=== PATIENT | female | born 1930 | race Caucasian/White ===

== ENCOUNTER 2017-11-29 04:18 | Inpatient (IN) ==
--- NOTE | 2017-11-29 08:00 | Internal Med History&Physical ---
Date of Encounter: 11/29/17 Time of Encounter: 07:15 Internal Medicine - H&P: HPI Chief complaint: chest pain Admitted From: Home Plans for Post Hospital Care: Transfer Alf Facility History of present illness: Ms. Zaidi is a 86 year old female with history of paroxysmal atrial fibrillation not on anticoagulation, hypothyroidism and noncompliance with medications and medical care presented to [facility] from [place] with chief complaint of chest pain. As per patient she has had on and off episodes of left-sided sharp chest pain that is nonradiating occurs at rest, lasts about 30 minutes to 1 hour and self relieving for the past 2 weeks. She cannot recall any alleviating or aggravating factors. She does report that she has been admitted to hospital multiple times in the past few weeks however she is unsure as to why. When asked about her medications she is unsure what medications she is prescribed and reports that currently she is not taking any medications. She is unable to provide further history. As per chart review she had visited [place] emergency department at around 1 AM on 11/29 with complaint of chest pain and palpitations. It appears that the patient had signed out AGAINST MEDICAL ADVICE after she was admitted for similar symptoms a few days prior to presenting to [facility] on 11/29. Patient currently lives alone, reports that she is independent with ambulation however she forgets to take her medications. She cannot recall the last time she saw her primary doctor. Currently she denies any fever, chills, chest pain, palpitations, shortness of breath, cough, nausea, vomiting, diarrhea, syncope, loss of consciousness, recent falls. Past Med Surg Social Fam HX - Past Medical History Medical history: atrial fibrillation, CVA, dementia, GERD, hyperlipidemia, hypertension, thyroid disease Additional medical history: Alzheimers Psychiatric history: no psych history - Past Surgical History Surgical History: non-contributory Additional surgical history: PARATHYROIDECTOMY - Social History Smoking Status: Never smoker Smokeless Tobacco Status: No Alcohol use: none, rarely Drug use: none Internal Medicine - H&P: Meds Levothyroxine [Synthroid] 88 mcg PO 0630 03/19/17 [History] Donepezil HCl [Aricept] 5 mg PO DAILY 07/21/17 [History] Aspirin [Lo-Dose Aspirin EC] 81 mg PO QAM 11/25/17 [History] 3 Allergy/AdvReac Type Severity Reaction Status Date / Time No Known Allergies Allergy Verified 11/25/17 17:54 All Systems PM: review of systems was performed and is negative for pertinent findings except as documented above in the HPI. - Constitutional Vitals: Temp Pulse Resp BP Pulse Ox 98.2 F 73 16 151/69 99 11/29/17 06:25 11/29/17 06:25 11/29/17 06:25 11/29/17 06:25 11/29/17 06:43 Exam: General: Patient is alert, oriented, no acute distress, thin Head: atraumatic, normocephalic, Eye: normal appearance, PERRL, no scleral icterus, no conjunctival injection ENT: mucous membranes moist, normal external ear exam Neck: normal inspection, trachea midline, full ROM, no carotid bruits Chest: normal inspection, symmetric chest rise Respiratory: Good respiratory effort. Bilateral breath sounds are clear without wheezing, crackles, or rhonchi. Cardiovascular: Regular rate and rhythm. s1 and s2 , systolic ejection murmur on the right second intercostal space parasternally. Abdomen: Bowel sounds present normoactive x-4 quadrants. Abdomen is soft, nondistended. no Epigastric tenderness. No guarding or rebound. No organomegaly noted, thin musculoskeletal: Spontaneously moving all extremities. no edema, no calf tenderness Skin: warm, dry, intact. Neuro: Alert and oriented x3 Sensation light touch intact. Cranial nerves 2- 12 is intact. Not aphasic Psych: Patient's affect is normal Internal Med - H&P Results - EKG Data -: EKG Interpreted by Myself (Sinus rhythm, ?LAE, Qwaves in III, V3 and V4 (? old sharri-inferior infarct) - EKG Data Prior EKG available for review: yes When compared to previous EKG: there is no significant change - Assessment and plan (1) Chest pain Current Visit: No Status: Acute Assessment and plan: Left-sided chest pain most likely secondary to A. fib with RVR but cannot rule out underlying CAD will rule out ACS. Telemetry monitoring troponin was negative at [facility] Follow serial troponin and EKG every 6 hours TTE Loaded with aspirin 325 and continue with aspirin 81 daily Cardiology consultation Nitroglycerin when necessary for chest pain Currently on Cardizem drip for A. fib with RVR taper off and start coreg 3.125 BID adn titrate as per BP and HR If she develops active chest pain, EKG changes, or the troponin trends up consider loading with Plavix and starting heparin drip Lipitor 40 mg daily at bedtime Lipid panel, TSH, A1c in the a.m. Qualifiers: Chest pain type: unspecified Qualified Code(s): R07.9 - Chest pain, unspecified (2) Atrial fibrillation with RVR Current Visit: No Status: Acute Assessment and plan: Was found to be in A. fib with RVR at [facility] and was started on Cardizem drip and transferred to [facility] Chads vasc score is 4 - i dont think she is a good candidate for anticoagulation as she is not compliant with medications - I tried to discuss with patient the risks and benefits of AC she would like to think about it. taper off Cardizem drip Start on coreg 3.125 mg BID and titrate as per BP and HR Continue aspirin 81 mg daily Cardiology consult TSH WNL will send magnesium TTE (3) Systolic ejection murmur Current Visit: Yes Status: Acute Assessment and plan: Systolic ejection murmur in the right second intercostal space parasternally TTE ordered (4) Microcytic anemia Current Visit: No Status: Acute Assessment and plan: Baseline H&H around 10 We will send iron panel FOBT Type and screen Monitor H&H and transfuse less than 8 (5) Hypertension Current Visit: No Status: Chronic Assessment and plan: Started on coreg 3.125 BID - titrate as per HR and BP We will follow vital signs Qualifiers: Hypertension type: essential hypertension Qualified Code(s): I10 - Essential (primary) hypertension (6) Hypothyroidism Current Visit: No Status: Chronic Assessment and plan: continue home medications TSH WNL at [place] Qualifiers: Hypothyroidism type: acquired Qualified Code(s): E03.9 - Hypothyroidism, unspecified (7) Protein calorie malnutrition Current Visit: Yes Status: Acute Assessment and plan: nutrition consult Qualifiers: Protein-calorie malnutrition severity: unspecified severity Qualified Code( s): E46 - Unspecified protein-calorie malnutrition (8) DVT prophylaxis Current Visit: Yes Status: Acute Assessment and plan: heparin sc - Time Spent With Patient Total time spent is greater than 50% in coordination of care (as documented) at patient's floor/unit and/or counseling patient:
[2017-11-29] MEDS ORDERED: Naloxone 0.4 MG/ML INJ IVP PRN (08:13)
[2017-11-29] MEDS ORDERED: Aspirin 81 MG TAB.CHEW PO STA (08:15)
[2017-11-29 08:49] LABS: Prothrombin Time 11.4 Seconds (9.4-12.1)
[2017-11-29 08:52] LABS: Activated Partial Thrombo Time 34.3 Seconds (26.0-36.0)
[2017-11-29 09:04] LABS: Chol/HDL Ratio 3.2 (0-4.9); Magnesium 1.9 mg/dL (1.6-2.6); Phosphorous 3.5 mg/dL (2.7-4.5)
[2017-11-29] MEDS: *HR* Heparin 5,000 UNIT/ML VIAL SQ SCH ×2 (14:15→21:28)
[2017-11-30] MEDS: *HR* Heparin 5,000 UNIT/ML VIAL SQ SCH ×3 (05:28→22:06)
[2017-11-30 06:23] LABS: Basophils % 0.7 %; Eosinophils # 0.2 K/mcL (0.0-0.6); Eosinophils % 5.3 %; Hemoglobin 10.9 g/dL (11.5-15.4); Immature Granulocytes % 0.2 % (0-4); Lymphocytes # 1.2 K/mcL (0.6-4.6); Lymphocytes % 25.8 %; Mean Corpuscular HGB Conc 30.3 g/dL (31.6-35.5); Mean Corpuscular Hemoglobin 24.1 pg (28.0-33.3); Mean Corpuscular Volume 79.5 fL (83.0-100.0); Mean Platelet Volume 10.2 fL (9.4-12.4); Monocytes # 0.4 K/mcL (0.0-1.3); Monocytes % 9.1 %; Neutrophils # 2.6 K/mcL (1.6-8.9); Platelet Count 227 K/mcL (140-400); Red Blood Count 4.53 M/mcL (3.82-4.97); Red Cell Distribution Width 15.2 % (11.5-14.5); Segmented Neutrophils % 58.9 %
[2017-11-30 06:40] LABS: BUN/Creatinine Ratio 20 (6-26); Blood Urea Nitrogen 17 mg/dL (8-23); Calcium 9.4 mg/dL (8.6-10.3); Carbon Dioxide 26 mEq/L (23-29); Chloride 107 mEq/L (98-107); Glucose 109 mg/dL (70-105); Osmolality,Calculated 288 (280-300); Potassium 4.3 mEq/L (3.5-5.1); Sodium 138 mEq/L (136-145); eGFR For Non-African Americans > 60 (> 60)
[2017-11-30 06:41] LABS: % Iron Saturation 6 % (15-50); Iron 32 mcg/dL (50-170); Transferrin 356 mg/dL (203-362)
[2017-11-30] MEDS: Aspirin Enteric Coated 81 MG Tablet PO SCH (08:12)
--- NOTE | 2017-11-30 11:09 | Cardiology Consult Note ---
Date of Encounter: 11/30/17 Time of Encounter: 10:00 Assessment and Plan (1) Elevated troponin Current Visit: Yes Status: Acute Mildly elevated troponin, 0.06, 0.05, 0.03, in the setting of atrial fibrillation with RVR (HR 140's-150's) and severely elevated BP (SBP 200s); suspect demand ischemia. No acute ischemic ECG changes present. No recurrent chest pain since HR/BP controlled. Suspect neck/chest discomfort secondary to RVR and severely elevated BP. Nuclear stress test (2014 at [facility]) negative for ischemia or infarct. BP remains severely elevated this AM, will increase coreg to 6.25 mg BID. Continue asa. TTE shows preserved LVEF with normal wall motion. No further testing recommended as inpatient at this time, continue medical therapy. Follow-up with [facility] as scheduled in the outpatient setting. (2) PAF (paroxysmal atrial fibrillation) Current Visit: Yes Status: Acute Hx of PAF. Upon review, had been on Coumadin in the past, reportedly d/t CVA however d/c'ed a few years ago due to recurrent falls (with injury) and dementia. Converted to NSR, no recurrent PAF noted. Continue BB and ASA for AC. No further testing recommended at this time. Has outpatient follow-up with Cardiology scheduled. (3) Systolic ejection murmur Current Visit: Yes Status: Acute TTE completed and demonstrated preserved LVEF with moderately thickened AV with no significant stenosis; no other significant valvular dysfunction noted. No further testing recommended. Continue to monitor. Recommend close outpatient follow-up with PCP. Discussion w patient/family: The assessment and plan as outlined above was discussed with the patient and/or family members who expressed understanding and agreement. All questions were answered. Thank you for involving us in the care of your patient. Please call with any questions. The patient will be discussed and reviewed with Dr. Orona; changes to be made accordingly. History of Present Illness Consult date: 11/29/17 Requesting physician: Chaparrita Costello Consult reason: CP/AFIB/ Chief complaint: Chest pain History of present illness: Ms. Zaidi is a 86 year old female with PMHx significant for dementia, DMII, HTN , PAF, and prior CVA who presented to the ED with complaints of chest and neck discomfort. Please note, patient is a poor historian given hx of dementia; she is alert and oriented x3 however is noted to be forgetful. She reports episode of chest and neck discomfort that started yesterday; reportedly her friend took her to the ED for further evaluation. Upon arrival to [facility] ED she was noted to be in atrial fibrillation with RVR (rate 148) with significantly elevated blood pressure, SBP ~200. She was then sent to [facility] for further evaluation. Upon exam, patient is chest pain free. She has since converted to NSR. Upon review, patient had been on Coumadin in the past (indication CVA) however was stopped ~2 years ago due to frequent falls with injury (lacerations to head) and worsening dementia. Past Med Surg Social Fam HX - Past Medical History Attestation: Yes The following information was validated with the patient. Source: patient Medical history: atrial fibrillation, CVA, dementia, GERD, hyperlipidemia, hypertension, thyroid disease Additional medical history: Alzheimers Psychiatric history: no psych history - Past Surgical History Surgical History: non-contributory Additional surgical history: PARATHYROIDECTOMY - Social History Smoking Status: Never smoker Smokeless Tobacco Status: No Alcohol use: none, rarely Drug use: none - Family History Mother Living Status: Cause of : unknown Hx Family Cardiac Disorders: Yes (heart disease) Father Living Status: Cause of : unknown Hx Family Cardiac Disorders: Yes (heart disease) Medications and Allergies Levothyroxine [Synthroid] 88 mcg PO 0630 03/19/17 [History] Donepezil HCl [Aricept] 5 mg PO DAILY 07/21/17 [History] Aspirin [Lo-Dose Aspirin EC] 81 mg PO QAM 11/25/17 [History] 3 Allergy/AdvReac Type Severity Reaction Status Date / Time No Known Allergies Allergy Verified 11/25/17 17:54 All Systems Review: The remainder of the systems were reviewed and are negative - Cardiovascular Cardiovascular: as per HPI Physical Examination Vital Signs, Last 4 Hours Temp Pulse Resp BP Pulse Ox 11/30/17 07:29 98.3 F 74 16 185/78 97 General: Conversant, No Apparent Distress (f), Other (forgetful) Cardiac: Reg Rate and Rhythm, Normal S1 and S2, Other (2/6 systolic murmur) Neuro: Alert and responsive Abdomen: Soft Skin: No rashes noted on visualized skin Musculoskeletal: No Chest Wall Tenderness Extremities: No Edema, Normal Pulses Results 11/30/17 05:51 11/30/17 05:51 Lab Results 11/29/17 11/29/17 11/30/17 14:07 20:13 05:51 WBC 4.5 Hgb 10.9 L Hct 36.0 Plt Count 227 Sodium Potassium Chloride Carbon Dioxide BUN Creatinine Glucose Calcium Troponin I 0.05 H* 0.03 11/30/17 05:51 WBC Hgb Hct Plt Count Sodium 138 Potassium 4.3 Chloride 107 Carbon Dioxide 26 BUN 17 Creatinine 0.84 Glucose 109 H Calcium 9.4 Troponin I Active Medications Aspirin (Aspirin Ec) 81 mg PO QAM [facility] Stop: 06/01/18 09:01 Last Admin: 11/30/17 08:12 Dose: 81 mg Carvedilol (Coreg) 3.125 mg PO BIDWM [facility] PRN Reason: Protocol Stop: 05/31/18 08:46 Last Admin: 11/30/17 08:12 Dose: 3.125 mg Donepezil HCl (Aricept) 5 mg PO DAILY [facility] Stop: 05/31/18 09:01 Last Admin: 11/30/17 08:12 Dose: 5 mg Heparin Sodium (Porcine) (Heparin) 5,000 unit SQ Q8HCO [facility] Stop: 05/31/18 14:01 Last Admin: 11/30/17 05:28 Dose: 5,000 unit Levothyroxine Sodium (Synthroid) 88 mcg PO 0630 [facility] Stop: 06/01/18 06:31 Last Admin: 11/30/17 05:28 Dose: 88 mcg Naloxone HCl (Narcan) 0.4 mg IVP Q2MIN PRN PRN Reason: SEE COMMENTS Stop: 05/31/18 08:14 Omeprazole (Prilosec) 20 mg PO DAILY@0630 [facility] PRN Reason: Protocol Stop: 06/01/18 06:31 Last Admin: 11/30/17 05:28 Dose: 20 mg - Imaging and Cardiology Echo: report reviewed Other Results: 12 hour tele: avg HR=72 SR. No events noted. - EKG Interpretation EKG results cardiology: personally reviewed Consult Discharge Plan - Plan Referrals: Carlos Olmstead MD [Primary Care Provider] -
--- NOTE | 2017-11-30 20:21 | Internal Med Progress Note ---
Hospitalist Progress Note - Encounter Date of Encounter: 11/30/17 Time of Encounter: 19:00 - Subjective Interval History: SUBJECTIVE: The patient feels good. She has not had any chest pain or difficulty breathing since admitting her to our hospital. Denies dizziness/lightheadedness. Denies abdominal pain, nausea and vomiting. She has normal urination. OBJECTIVE: Skin: Free of rash and discoloration. ENMT: Oral/pharyngeal mucosa is normal in appearance. Eyes: Sclera is white. There is no discharge from eyes. Respiratory: Normal breath sounds; no crackles or wheezes. CV: Heart is regular; no gallop or murmur. GI: Abdomen is soft and not tender. There is no palpable mass or visceromegaly. Neuro: There is no focal deficits. ADDITIONAL DATA: Her telemetry shows normal sinus rhythm. Echocardiogram shows ejection fraction of 65%. Otherwise, he does not show any significant abnormalities. Hemoglobin is 10.9 with MCV of 79.5. Her iron level is 32; with a 6% of saturation. Aspirin is 356. BMP is normal. ASSESSMENT AND PLAN: The patient admitted with chest pain. She had an episode of atrial fibrillation with rapid ventricular rate before she converted to normal sinus rhythm. Cardiology is consulted. They want to do stress test tomorrow. Uncontrolled hypertension. We have to keep her carvedilol on hold due to pending stress test. We will use when necessary IV hydralazine. Microcytic anemia. We will start her on iron pills. She needs outpatient GI workup. Hypothyroidism. Clinically under control. We will continue Synthroid. - Exam Vitals: Temp Pulse Resp BP Pulse Ox 98.7 F 71 14 123/65 93 11/30/17 16:33 11/30/17 16:33 11/30/17 16:33 11/30/17 18:40 11/30/17 16:33 Exam: xx - Assessment and Plan (1) Chest pain Current Visit: Yes Status: Acute (2) PAF (paroxysmal atrial fibrillation) Current Visit: Yes Status: Acute (3) Atrial fibrillation with RVR Current Visit: Yes Status: Resolved (4) Hypertension Current Visit: Yes Status: Chronic (5) Microcytic anemia Current Visit: Yes Status: Chronic (6) Hypothyroidism Current Visit: Yes Status: Chronic (7) Protein calorie malnutrition Current Visit: Yes Status: Acute - Time Spent with Patient Total time spent is greater than 50% in coordination of care (as documented) at patient's floor/unit and/or counseling patient: 25 - 35 minutes Plan of Care Discussed with: patient Internal Medicine: Result - Labs CBC & Chem 7: 11/30/17 05:51 11/30/17 05:51 Labs: Short CBC 11/30/17 Range/Units 05:51 WBC 4.5 (4.3-11.1) K/mcL Hgb 10.9 L (11.5-15.4) g/dL Hct 36.0 (35.3-44.9) % Plt Count 227 (140-400) K/mcL Neutrophils # 2.6 (1.6-8.9) K/mcL BMP 11/30/17 05:51 Sodium 138 Potassium 4.3 Chloride 107 Carbon Dioxide 26 BUN 17 Creatinine 0.84 Glucose 109 H Calcium 9.4 Cardiac Enzymes 11/29/17 Range/Units 20:13 Troponin I 0.03 (< 0.04) ng/mL - ABG Interpretation ABG results: PT/INR, D-dimer PT 11.4 Seconds (9.4-12.1) 11/29/17 08:30 - Impressions Impressions Echocardiogram 11/29/17 08:17 Impressions: LVEF 65%. Normal LV chamber size and function. Mild concentric left ventricular hypertrophy. Mild left ventricular diastolic dysfunction. Normal right ventricular structure and function. Moderately thickened aortic valve leaflets without significant stenosis. Mean gradient 8 mmHg. Consult Discharge Plan - Plan Referrals: Carlos Olmstead MD [Primary Care Provider] - (1) Chest pain Qualifiers: Chest pain type: unspecified Qualified Code(s): R07.9 - Chest pain, unspecified (4) Hypertension Qualifiers: Hypertension type: essential hypertension Qualified Code(s): I10 - Essential (primary) hypertension (6) Hypothyroidism Qualifiers: Hypothyroidism type: acquired Qualified Code(s): E03.9 - Hypothyroidism, unspecified (7) Protein calorie malnutrition Qualifiers: Protein-calorie malnutrition severity: unspecified severity Qualified Code(s) : E46 - Unspecified protein-calorie malnutrition
[2017-12-01] MEDS ORDERED: Regadenoson 0.4 MG/5 ML SYRINGE IVP ONE (05:27)
[2017-12-01] MEDS: *HR* Heparin 5,000 UNIT/ML VIAL SQ SCH (06:29)
[2017-12-01] MEDS: Aspirin Enteric Coated 81 MG Tablet PO SCH (09:25)
--- NOTE | 2017-12-01 10:15 | Cardiology Progress Note ---
Date of Encounter: 12/01/17 Time of Encounter: 11:00 Assessment and Plan (1) Elevated troponin Current Visit: Yes Status: Acute Mildly elevated troponin, 0.06, 0.05, 0.03, in the setting of atrial fibrillation with RVR (HR 140's-150's) and severely elevated BP (SBP 200s); suspect demand ischemia. No acute ischemic ECG changes present. No recurrent chest pain since HR/BP controlled. Suspect neck/chest discomfort secondary to RVR and severely elevated BP. Nuclear stress test (2014 at [facility]) negative for ischemia or infarct. BP remains severely elevated this AM, coreg increased yesterday; will resume ACEi today at decreased dose--recommend further dose titration by primary service. TTE shows preserved LVEF with normal wall motion. Nonexercise nuclear stress completed today and is negative for ischemia or infarct. Follow-up with [facility] as scheduled in the outpatient setting. (2) PAF (paroxysmal atrial fibrillation) Current Visit: Yes Status: Acute Hx of PAF. Upon review, had been on Coumadin in the past, reportedly d/t CVA however d/c'ed a few years ago due to recurrent falls (with injury) and dementia. Converted to NSR, no recurrent PAF noted. Continue BB and ASA for AC. No further testing recommended at this time. Has outpatient follow-up with Cardiology scheduled. (3) Systolic ejection murmur Current Visit: Yes Status: Acute TTE completed and demonstrated preserved LVEF with moderately thickened AV with no significant stenosis; no other significant valvular dysfunction noted. No further testing recommended. Continue to monitor. Recommend close outpatient follow-up with PCP. Discussion w patient/family: The assessment and plan as outlined above was discussed with the patient and/or family members who expressed understanding and agreement. All questions were answered. Thank you for involving us in the care of your patient. Please call with any questions. The patient will be discussed and reviewed with Dr. Wright; changes to be made accordingly. Subjective Principal diagnosis: Afib, chest pain Interval history: Seen and examined earlier this morning in the stress lab. No chest pain overnight. Noted to be forgetful. No PAF noted. Objective Vital Signs, Last 4 Hours Temp Pulse Resp BP Pulse Ox 12/01/17 08:51 98.2 F 82 17 162/66 95 General: Conversant, No Apparent Distress, Other (thin, frail) HEENT: Atraumatic, Normocephaly, Mucus Membranes Moist Neck: No JVD, Normal carotid pulses Cardiac: Reg Rate and Rhythm, Normal S1 and S2, No Murmur Lungs: Normal Breath Sounds, No Wheeze, Rales, Rhonchi Neuro: Alert and responsive, No focal deficits noted Abdomen: Soft, Non-Tender Skin: No rashes noted on visualized skin Musculoskeletal: No Chest Wall Tenderness Extremities: No Clubbing, No Cyanosis, No Edema, Normal Pulses Results 11/30/17 05:51 11/30/17 05:51 Active Medications Aspirin (Aspirin Ec) 81 mg PO QAM [facility] Stop: 06/01/18 09:01 Last Admin: 12/01/17 09:25 Dose: 81 mg Carvedilol (Coreg) 6.25 mg PO BIDWM [facility] PRN Reason: Protocol Stop: 06/01/18 17:01 Last Admin: 12/01/17 09:25 Dose: 6.25 mg Donepezil HCl (Aricept) 5 mg PO DAILY [facility] Stop: 05/31/18 09:01 Last Admin: 12/01/17 09:25 Dose: 5 mg Heparin Sodium (Porcine) (Heparin) 5,000 unit SQ Q8HCO [facility] Stop: 05/31/18 14:01 Last Admin: 12/01/17 06:29 Dose: 5,000 unit Hydralazine HCl (Hydralazine) 10 mg IVP Q1H PRN PRN Reason: Blood Pressure - High Stop: 06/01/18 16:53 Last Admin: 11/30/17 17:29 Dose: 10 mg Levothyroxine Sodium (Synthroid) 88 mcg PO 0630 [facility] Stop: 06/01/18 06:31 Last Admin: 12/01/17 06:30 Dose: 88 mcg Naloxone HCl (Narcan) 0.4 mg IVP Q2MIN PRN PRN Reason: SEE COMMENTS Stop: 05/31/18 08:14 Omeprazole (Prilosec) 20 mg PO DAILY@0630 [facility] PRN Reason: Protocol Stop: 06/01/18 06:31 Last Admin: 12/01/17 06:30 Dose: 20 mg - Imaging and Cardiology Stress Test: report reviewed Echo: report reviewed Other Results: 12 hour tele: avg HR=79 SR. No PAF noted. - EKG Interpretation EKG results cardiology: personally reviewed Consult Discharge Plan - Plan Referrals: Carlos Olmstead MD [Primary Care Provider] -
[2017-12-01 11:01] VITALS: BP 162/62
--- NOTE | 2017-12-01 13:09 | Discharge Summary ---
Orders not resulted at time of discharge: Pending orders 11/29/17 08:26 Occult Blood,Stool [BF] Stat 11/29/17 14:13 ECG 12 lead ECG [ECG] Q6H 11/29/17 20:13 ECG 12 lead ECG [ECG] Q6H 11/30/17 12:43 NM bautista perf SPECT multi [NM] Routine Date of Encounter: 12/01/17 Time of Encounter: 13:05 - Discharge Diagnosis (1) Chest pain Priority: Primary Status: Acute Qualifiers: Chest pain type: unspecified Qualified Code(s): R07.9 - Chest pain, unspecified (2) PAF (paroxysmal atrial fibrillation) Priority: Primary Status: Acute (3) Atrial fibrillation with RVR Priority: Primary Status: Resolved (4) Hypertension Priority: Secondary Status: Chronic Qualifiers: Hypertension type: essential hypertension Qualified Code(s): I10 - Essential (primary) hypertension (5) Microcytic anemia Priority: Secondary Status: Chronic (6) Hypothyroidism Priority: Secondary Status: Chronic Qualifiers: Hypothyroidism type: acquired Qualified Code(s): E03.9 - Hypothyroidism, unspecified (7) Protein calorie malnutrition Priority: Secondary Status: Acute Qualifiers: Protein-calorie malnutrition severity: unspecified severity Qualified Code( s): E46 - Unspecified protein-calorie malnutrition Hospital course: HOSPITAL COURSE: The patient is an 86-year-old woman. She had experienced multiple episodes of chest pain in the last 2 weeks preceding this admission. She also mentioned about fast heart beating happening shortly before this admission. She does have history of paroxysmal atrial fibrillation. Was not treated with Coumadin due to high risk (falls). Her EKG at admission showed normal sinus rhythm. Her troponins were 0.06, 0.05 and 0.03. We presented her to cardiology. They ordered a stress test. It showed normal findings. It was followed by stress test. He did not show any areas of ischemia. We feel that her slightly elevated troponin represents some demand ischemia. CONDITION AT DISCHARGE: The patient feels good. Denies chest pain and difficulty breathing. She is able to ambulate on her own without difficulties. Skin: Free of rash and discoloration. Respiratory: Normal breath sounds with no crackles and wheezes bilaterally. CV: Heart is regular with no gallop or murmur. GI: Abdomen is flat and soft with no palpable mass or visceromegaly. Neuro exam: There is no focal deficits. Normal speech, swallowing and gait. SEE DISCHARGE ORDERS/MEDICATIONS.. Discharge discussed with: patient, family - Time Spent with Patient Total time spent providing and/or coordinating discharge services: Greater than 30 minutes (40 minutes..) - Discharge Medications Prescriptions: Carvedilol [Coreg] 6.25 mg PO BIDWM #60 tablet Lisinopril [Zestril] 5 mg PO DAILY #30 tablet Home Medications: Levothyroxine [Synthroid] 88 mcg PO 0630 03/19/17 [History] Donepezil HCl [Aricept] 10 mg PO DAILY 07/21/17 [History] Aspirin [Lo-Dose Aspirin EC] 81 mg PO QAM 11/25/17 [History] Carvedilol [Coreg] 6.25 mg PO BIDWM #60 tablet 12/01/17 [Rx] Cyanocobalamin (Vitamin B-12) [Vitamin B12] 1,000 mcg PO DAILY 12/01/17 [History ] Levocetirizine Dihydrochloride [Allergy Relief] 5 mg PO DAILY 12/01/17 [History] Lisinopril [Zestril] 5 mg PO DAILY #30 tablet 12/01/17 [Rx] Sertraline [Zoloft] 50 mg PO DAILY 12/01/17 [History] Allergies/Adverse Reactions: 3 Allergy/AdvReac Type Severity Reaction Status Date / Time No Known Allergies Allergy Verified 11/25/17 17:54 Date of admission: 12/01/17 10:51 Primary care physician: Carlos Olmstead MD Consults: 11/29/17 06:41 Consult to Nutrition [CONS] Routine Comment: Consulting Provider: NUTRITION Reason for Dietary Consult: MST Score Consult to Applications Programmer Analyst [CONS] Routine Reason for SW Consult: possible needs at discharge 11/29/17 08:15 Consult to Case Management [CONS] Routine Comment: Consult to Nutrition [CONS] Routine Comment: Consulting Provider: NUTRITION Reason for Dietary Consult: PO Supplementation OT [Consult to Occupational Therapy] [CONS] Routine Comment: Evaluate, develop and implement POC Reason for Consult: disposition Does patient have active BEDREST order?: No Is patient medically & hemodynamically stable?: Yes Patient assessed for mobility or mobilized this visit?: Yes 11/29/17 08:16 Consult to Cardiology [CONS] Routine Comment: Consulting Provider: Cardiology [place] Reason for Consult: afib, CP, ? murmur Call Completed: No Discharging clinician: Og Andrew Anticipated date of discharge: 12/01/17 - Constitutional Vitals: Temp Pulse Resp BP Pulse Ox 98.4 F 70 18 162/62 98 12/01/17 10:55 12/01/17 10:55 12/01/17 10:55 12/01/17 10:55 12/01/17 10:55 General appearance: Present: cooperative, A&O X 3, pleasant, answers questions appropriately Exam: xx - Patient Status Disposition: Home, Self-Care Condition: Good Functional capacity at discharge: independent ambulation Overall status at discharge: patient is back to baseline - Discharge Instructions Instructions: Atrial Fibrillation (DC), Chronic Hypertension (DC), Anemia (GEN) Follow Up With: Carlos Olmstead MD [Primary Care Provider] - 12/05/17 1:00 pm - Diet and Activity Activity: resume usual activities as tolerated Diet: low fat, low cholesterol - VTE Reasons for not Prescribing Prophylaxis: Treatment not Indicated - Low risk for VTE Deep Vein Thrombosis/Pulmonary Embolism Present on Admission: No
--- NOTE | 2017-12-01 13:14 | Electrocardiograph Report ---
[address] [place], [place] [address] Test Date: 2017-11-29 Pat Name: Dinah Zaidi Department: [id number] Room: 2A Gender: F Aurist: Melissa : [id number] Requested By: [id number] Order Number: [id number] Reading MD: Ángela Mace Measurements Intervals [place] Rate: 77 P: 78 CT: 178 QRS: -19 QRSD: 94 T: 49 QT: 402 QTc: 433 Interpretive Statements SINUS RHYTHM INFERIOR MYOCARDIAL INFARCTION, OF INDETERMINATE AGE Electronically Signed On 12-01-2017 13:13:15 EDT by Ángela Mace
== END 2017-12-01 14:47 | disposition home or self-care (01) | DRG 309 ==
LOC: 2ANU → SUATTDRO 05:40
PROVIDERS: ADMIT Internal Medicine; ATTEND Internal Medicine

== ENCOUNTER 2020-03-20 21:52 | Observation (INO) ==
[2020-03-21] MEDS ORDERED: Naloxone 0.4 MG/ML INJ IVP PRN (00:48)
[2020-03-21] MEDS ORDERED: Ondansetron 4 MG/2 ML VIAL IVP PRN (00:48)
[2020-03-21] MEDS ORDERED: 0.9 % Sodium Chloride 1,000 ML IVC SCH (01:00)
[2020-03-21 05:36] LABS: INR 1.1; Prothrombin Time 12.7 Seconds (9.4-12.1)
[2020-03-21 05:37] LABS: Hematocrit 30.8 % (35.3-44.9); Hemoglobin 9.3 g/dL (11.5-15.4); Mean Corpuscular HGB Conc 30.2 g/dL (31.6-35.5); Mean Corpuscular Hemoglobin 29.3 pg (28.0-33.3); Mean Corpuscular Volume 97.2 fL (83.0-100.0); Mean Platelet Volume 10.9 fL (9.4-12.4); Platelet Count 124 K/mcL (140-400); Red Blood Count 3.17 M/mcL (3.82-4.97); Red Cell Distribution Width 12.9 % (11.5-14.5); White Blood Count 6.1 K/mcL (4.3-11.1)
[2020-03-21 05:39] LABS: Activated Partial Thrombo Time 31.2 Seconds (26.0-36.0)
[2020-03-21] MEDS ORDERED: Perflutren Lipid Microsphere 1.3 ML in 0.9 % Sodium Chloride 8.7 ML IVP PRN (05:45)
[2020-03-21 05:56] LABS: Potassium 4.4 mEq/L (3.5-5.1)
[2020-03-21 11:08] LABS: Bilirubin,Urine Negative (Negative); Blood,Urine Negative (Negative); Clarity,Urine Clear (Clear); Color,Urine Yellow (Yellow); Glucose,Urine (UA) Normal (Normal); Ketones,Urine Negative (Negative); Leukocyte Esterase,Urine Negative (Negative); Nitrite,Urine Negative (Negative); PH,Urine 5.5 pH Units (5.0-8.0); Protein,Urine Trace mg/dL (Neg-Trace); Specific Gravity,Urine 1.026 (1.010-1.025); Urobilinogen,Urine Normal (Normal)
[2020-03-21] MEDS: 0.9 % Sodium Chloride 1,000 ML IVC SCH (15:18)
[2020-03-21] MEDS ORDERED: Nitroglycerin 0.4 MG TAB.SUBL SL PRN (16:33)
[2020-03-21] MEDS: Metoprolol 100 MG TABLET PO SCH (19:57)
[2020-03-21] MEDS: *HR* LORazepam 0.5 MG TABLET PO SCH (19:57)
[2020-03-21] MEDS ORDERED: Mirtazapine 15 MG TABLET PO SCH (21:00)
[2020-03-22 01:04] LABS: Hematocrit 29.9 % (35.3-44.9); Hemoglobin 9.2 g/dL (11.5-15.4); Mean Corpuscular HGB Conc 30.8 g/dL (31.6-35.5); Mean Corpuscular Hemoglobin 30.2 pg (28.0-33.3); Mean Platelet Volume 11.3 fL (9.4-12.4); Platelet Count 108 K/mcL (140-400); Red Blood Count 3.05 M/mcL (3.82-4.97); Red Cell Distribution Width 13.1 % (11.5-14.5); White Blood Count 4.5 K/mcL (4.3-11.1)
[2020-03-22 01:23] LABS: BUN/Creatinine Ratio 25 (6-26); Blood Urea Nitrogen 25 mg/dL (8-23); Calcium 8.9 mg/dL (8.6-10.3); Carbon Dioxide 23 mEq/L (23-29); Chloride 114 mEq/L (98-107); Glucose 84 mg/dL (70-105); Magnesium 1.5 mg/dL (1.6-2.6); Osmolality,Calculated 300 (280-300); Potassium 4.4 mEq/L (3.5-5.1); Sodium 143 mEq/L (136-145); eGFR For African Americans > 60 (> 60); eGFR For Non-African Americans 52 (> 60)
[2020-03-22] MEDS: 0.9 % Sodium Chloride 1,000 ML IVC SCH (05:26)
[2020-03-22] MEDS: *HR* LORazepam 0.5 MG TABLET PO SCH (08:22)
[2020-03-22] MEDS: Metoprolol 100 MG TABLET PO SCH (08:22)
[2020-03-22] MEDS ORDERED: Aspirin Enteric Coated 81 MG Tablet PO SCH (09:00)
[2020-03-22] MEDS ORDERED: amLODIPine 5 MG TABLET PO SCH (09:00)
[2020-03-22] MEDS ORDERED: lisinopriL 20 MG TABLET PO SCH (09:00)
[2020-03-22 11:01] VITALS: BP 108/63
[2020-03-22] MEDS ORDERED: Magnesium Oxide 400 MG TABLET PO ONE (12:03)
== END 2020-03-22 13:25 ==
LOC: 3NENU → SUATTDRO 03-21 00:15
PROVIDERS: ADMIT Student in an Organized Health Care Education/Training Program; ATTEND Internal Medicine